=== PATIENT | female | born 1960 | race Caucasian/White ===

== ENCOUNTER 2016-12-03 03:11 | Emergency (ER) | payer BC, SELFPAY ==
--- NOTE | ~2016-12-03 | CON ---
PATIENT'S NAME: ELYSE ISAACS [facility] AGE: 56 Y [address] ROOM: [place] [address] LOCATION: [facility] ADMIT DATE: 12/03/2016 Consultation DISCHARGE DATE: FAMILY PHYSICIAN: Physician, Unknown ATTENDING PHYSICIAN: Khai Herman DATE OF CONSULTATION: 12/03/2016 REFERRING PHYSICIAN: Khai Herman MD REASON FOR CONSULTATION: Chest pain. HISTORY OF PRESENT ILLNESS: The patient is a 56-year-old female, who reports past medical history of depression and plantar fasciitis. She had a brief episode of right-sided sharp chest pain, which appeared suddenly and was not precipitated by any activity. The pain was intermittent in its frequency and its intensity was 5/10. The pain was present for about 10 minutes. The patient called paramedics. She was taken to the ER and received some aspirin en route. Her pain has now resolved. She reports she feels back at baseline. She reports no shortness of breath, nausea, vomiting, diarrhea, palpitations associated with her presentation. She reports having been at her baseline state of health up until this episode. LABORATORY DATA: A workup in the ER demonstrated a troponin of 0.046 and aside from that, the remainder of the workup was negative. PAST MEDICAL HISTORY: As reported by the patient is depression and plantar fasciitis. SOCIAL HISTORY: Negative for any ongoing history of toxic habits. CURRENT MEDICATIONS: 1. Clonidine. 2. Geodon. 3. Lamictal. 4. Risperdal. FAMILY HISTORY: Positive for heart disease in her sister and diabetes in her father. PHYSICAL EXAMINATION: PATIENT'S NAME: ELYSE ISAACS [facility] AGE: 56 Y [address] ROOM: [place] [address] LOCATION: [facility] ADMIT DATE: 12/03/2016 Consultation DISCHARGE DATE: FAMILY PHYSICIAN: Physician, Unknown ATTENDING PHYSICIAN: Khai Herman VITAL SIGNS: Blood pressure of 147/71, temperature 97.6, respirations of 14, saturating 100% on room air, pulse is 62. GENERAL: Appears well-developed, well-nourished middle-aged female, in no acute distress. NEUROLOGIC: Nonfocal. HEENT: Eye exam shows pupils are equal and reactive to light. LYMPHATIC: Shows no cervical lymphadenopathy. ENDOCRINE: Shows no thyromegaly. LUNGS: Clear to auscultation. HEART: Heart rate is slightly bradycardic and there are no murmurs, gallops, or rubs. GI: Abdomen is soft, nontender, nondistended. : No costovertebral angle tenderness. VASCULAR: 2+ pedal pulses. MUSCULOSKELETAL: No muscle or joint abnormalities. PSYCHIATRIC: Reveals slightly flat mood and affect, but preserved cognition. LABORATORY DATA: Workup in the ER shows an EKG, which shows sinus bradycardia at 58 beats per minute and the biochemical profile. This is remarkable for troponin of 0.045. IMPRESSION AND RECOMMENDATIONS: This is a 56-year-old female, who has been admitted with an episode of brief and noncardiac chest pain. I offered the patient an admission for observation, a repeat troponin, but she requested to try and get home. I think it is not unreasonable to recheck another troponin and discharge her home to follow up with PMD as she does not have any significant risk factors of coronary artery disease nor is her presentation consistent with any other acute conditions. This plan was discussed with Dr. Herman and the patient and we are in agreement. Time dedicated to patient encounter is 25 minutes. MD IAM COLLINS/[place] /[id number] d: 12/03/16 0506 t: 12/10/16 0018, CONSULTATION REPORT
--- NOTE | ~2016-12-03 | ER ---
PATIENT'S NAME: ELYSE ISAACS [facility] AGE: 56 Y [address] ROOM: [place] [address] LOCATION: [facility] ADMIT DATE: 12/03/2016 ER/Outpatient Report DISCHARGE DATE: 12/03/2016 FAMILY PHYSICIAN: Torrie Mccullough MD ATTENDING PHYSICIAN: Lara Herman TIME SEEN: 0330 hours. CHIEF COMPLAINT: This is a 56-year-old female who was previously reasonably healthy in with complaint of right parasternal chest pain radiating to her right shoulder. HISTORY OF PRESENT ILLNESS: She reports she was at work. She had just finished eating some fruits at lunch break and she developed pain in the right side of her chest. Pain lasted approximately 20-30 minutes and then resolved. She was pain free by the time she presented here. PAST MEDICAL HISTORY: Significant for bipolar disorder. CURRENT MEDICATIONS: See list. REVIEW OF SYSTEMS: Otherwise negative. SOCIAL HISTORY: She is a nonsmoker. PHYSICAL EXAMINATION: GENERAL: Alert, pleasant, cooperative female in no acute distress. VITAL SIGNS: Stable. SKIN: Warm and dry. Color is normal. HEAD, EARS, EYES, NOSE, AND THROAT: Normal. NECK: Supple. HEART: Regular rate and rhythm without murmur. LUNGS: Clear. Breath sounds are equal. There is no chest wall tenderness. ABDOMEN: Soft. She had minimal right upper quadrant tenderness. EXTREMITIES: Normal. NEUROLOGIC: Normal. LABORATORY DATA: CBC and comprehensive metabolic profile were unremarkable. EKG revealed PATIENT'S NAME: ELYSE ISAACS [facility] AGE: 56 Y [address] ROOM: [place] [address] LOCATION: [facility] ADMIT DATE: 12/03/2016 ER/Outpatient Report DISCHARGE DATE: 12/03/2016 FAMILY PHYSICIAN: Torrie Mccullough MD ATTENDING PHYSICIAN: Lara Herman normal sinus rhythm with no acute ST or T-wave changes. Cardiac enzymes revealed minimally elevated troponin. I called Dr. Paniagua, the hospitalist, who arrived promptly, evaluated the patient. Initially, the patient had agreed to be admitted; however, she changed her mind and declined admission. She did agree to have her cardiac enzymes repeated in 2 hours and they were unchanged, still minimally elevated. ASSESSMENT: Chest pain. PLAN: Return if she changes her mind about being admitted. Otherwise, follow up with her regular doctor to schedule an outpatient stress test. LARA HERMAN MD JDB/modl /[id number] d: 12/04/16 0501 t: 12/05/16 0444, OUTPATIENT REPORT
[2016-12-03 03:33] LABS: BASOPHIL # 0.1 K/uL (0.0-0.2); BASOPHIL % 0.7 %; EOSINOPHIL # 0.2 K/uL (0.0-0.5); EOSINOPHIL % 2.3 %; HEMATOCRIT 38.2 % (33.0-46.0); HEMOGLOBIN 13.2 g/dL (10.0-15.0); IMMATURE GRANULOCYTE % 0.1 %; LYMPHOCYTE # 2.1 K/uL (0.8-4.0); LYMPHOCYTE % 30.8 %; MCH 33.1 pg (27.0-34.0); MCHC 34.6 gm/dL (32.0-36.5); MCV 95.7 fl (83.0-98.0); MONOCYTE # 0.6 K/uL (0.0-1.0); MONOCYTE % 8.5 %; MPV 10.5 fl (9.4-12.4); NEUTROPHIL # (ANC) 3.9 K/uL (1.8-7.8); NEUTROPHIL % 57.6 %; NRBC % 0 /100WBC (0-0.00); PLATELET COUNT 286 K/uL (150-450); RBC 3.99 M/uL (3.50-5.50); RDW-CV 12.7 % (11.9-14.6); WBC 6.8 K/uL (4.0-11.0)
[2016-12-03 03:41] LABS: INR - (THERAPEUTIC) 1.01 (0.92-1.07); PROTIME 10.6 SECONDS (9.8-11.4); PTT 28 SECONDS (25-32)
[2016-12-03 03:52] LABS: ALBUMIN 3.6 gm/dL (3.5-5.0); ALK PHOS 81 IU/L (33-138); ALT 16 IU/L (12-78); AST 12 IU/L (10-40); BLOOD UREA NITROGEN 23 mg/dL (6-24); CALCIUM 8.5 mg/dL (8.5-10.5); CHLORIDE 109 mMol/L (96-110); CO2 24 mMol/L (22-32); CPK 57 IU/L (21-215); CREATININE 0.8 mg/dL (0.5-1.1); ESTIMATED GFR (MDRD EQUATION) > 60; SODIUM 142 mMol/L (135-145); TOTAL BILIRUBIN 0.3 mg/dL (0.0-1.5)
[2016-12-03 05:43] LABS: CPK 60 IU/L (21-215)
== END 2016-12-03 05:51 | disposition disaster alternative care site (69) ==
LOC: GMED 03:11
PROVIDERS: Emergency Medicine
DX: R07.89 Other chest pain (principal); F31.9 Bipolar disorder, unspecified; F32.9 Major depressive disorder, single episode, unspecified; Z88.0 Allergy status to penicillin; Z79.899 Other long term (current) drug therapy; Z98.890 Other specified postprocedural states; Z72.820 Sleep deprivation

== ENCOUNTER → 2016-12-03 | Outpatient (CLI) | payer BC, OTHER | END | disposition disaster alternative care site (69) | LOC: GAMB 02:57 | DX: R07.9 Chest pain, unspecified (principal); F32.9 Major depressive disorder, single episode, unspecified; Z79.899 Other long term (current) drug therapy; Z88.0 Allergy status to penicillin | CPT/HCPCS: A0425; A0427 ==